=== PATIENT | female | born 1935 | race Caucasian/White ===

== ENCOUNTER 2020-10-07 09:20 | Outpatient (CLI) | payer MEDICARE, SELFPAY ==
--- NOTE | 2020-10-12 12:53 | WPDHOMESLEEP ---
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 She does not awaken from sleep feeling short of breath. She rarely awakens at night with heartburn, belching or coughing. She does not know if she snores. She rarely has trouble sleep with a cold rarely wakes up gasping for breath at night. She does not have breathing problems at night observed by others or sweating at night. She occasionally notices her heart pounding or beating irregularly we at night. She does not fall asleep during the day, does not fall asleep involuntarily or while driving. She rarely has loss of muscle tone was strong emotion. She does not have daytime difficulties due to excessive sleepiness. She does not feel paralyzed on waking or falling asleep. She does not have vivid dreamlike scenes upon awakening or falling asleep. She is not afraid to go to sleep. She rarely has nightmares. She really remembers her dreams. She rarely has racing thoughts. She occasionally has feelings of sadness, depression or anxiety. She occasionally has muscular tension. She does not notice parts of her body jerking and she does not kick at night. She rarely has crawling and aching feelings in her legs and rarely has any kind of leg pain at night. She does not have morning jaw pain. She does not know if she grinds her teeth at night. She rarely is bothered by pain during the day and rarely is awake by pain at night. She occasionally wakes up feeling stiff in the morning, rarely with sore or achy muscles and rarely with pain in the neck and spine. She has memory problems, depression, poor appetite and she takes antacids regularly. She has difficulty as she wakes up multiple times at night and it has difficulty returning to sleep. Normal bedtime is between 8 and 8:30 p.m., and she is not sure how long it takes her to fall asleep. She typically wakes at night 1-2 times. While awake she will stay in bed trying to rest and try to return to sleep. She estimates that these episodes of wake will last anywhere between 30 minutes to 2 hours. She wakes the morning at 5:00 a.m.. She estimates getting 7 8 hours of sleep at night. Her weekend schedule is the same. [facility] Past Medical History Medical History Hyperlipidemia Hypertension Lung malignancy Type 2 diabetes mellitus Surgical History Surgical History History of mitral valve repair Family History Family History Sibling Diabetes mellitus Family history of malignant neoplasm Father Family history of cardiovascular disease Social History Social History Smoking status: Never smoker Second hand tobacco smoke exposure: No Alcohol intake: former Substance use: never Substance use type: does not use Additional gender identity comments: Hospital Volunteer. Medications Home Medications Medication Instructions Recorded Confirmed Type metoprolol tartrate 25 mg tablet 12.5 mg PO DAILY #45 tablet 09/02/19 08/24/20 Rx erlotinib 150 mg tablet 100 mg PO DAILY tablet 04/12/20 08/24/20 History vitamins B1 B6 B12 tablet tablet PO DAILY tablet 04/12/20 08/24/20 History metformin 500 mg tablet,extended 1,000 mg PO BID #360 tablet 05/03/20 08/24/20 Rx release 24 hr ibandronate 150 mg tablet 150 mg PO CLAUDIA
== END 2020-10-07 09:21 | disposition home or self-care (01) ==
LOC: ANHCSM 09:20
PROVIDERS: PCP Physician Assistant; Visit Provider Physician Assistant
DX: G47.19 Other hypersomnia (principal)
CPT/HCPCS: 99199

== ENCOUNTER 2021-04-06 15:36 | Outpatient (CLI) | payer MEDICARE, SELFPAY ==
--- NOTE | ~2021-04-06 | XR_ITS ---
XR hip BI wo pelvis DATE: 04/06/2021 16:28 INDICATION: Fall on 03/23/2021. Bilateral hip pain, greater on the right TECHNIQUE: AP, lateral and crosstable lateral views of each hip COMPARISON: 03/27/2019 CT chest abdomen pelvis FINDINGS: Diffuse osteopenia. There is an old healed fracture of the right inferior pubic ramus. The pubic symphysis and sacroiliac joints are intact. No fracture, dislocation, avascular necrosis or bone destruction of either hip is detected. Bilateral hip osteoarthritis and chondrocalcinosis. IMPRESSION: Old healed right inferior pubic ramus fracture No fracture or dislocation Osteopenia Bilateral hip osteoarthritis and chondrocalcinosis Reviewed, dictated and finalized at location A.
--- NOTE | ~2021-04-06 | XR_ITS ---
XR lumbar spine min 4V DATE: 04/06/2021 16:28 INDICATION: Fall on 03/23. Right low back pain. TECHNIQUE: AP, lateral, bilateral oblique and coned lateral lumbosacral views COMPARISON: 01/13/2013 lumbar spine FINDINGS: There is diffuse osteopenia. There is levoscoliosis of the lower thoracic and lumbar spine. There is moderately severe anterior wedge compression fracture deformity of T11, mildly increased in severity since 01/13/2013. There is interval severe burst fracture deformity of L1 since December 2012, with greater than 75% loss o f height anteriorly. There is grade 1 anterolisthesis at L4-5 due to degenerative change at the apophyseal joints. No spon dylolysis is evident. There is severe degenerative disc disease at L5-S1. There is mild to moderate degenerative disc disea se at the remaining lumbar interspaces. The sacroiliac joints are intact. Prosthetic mitral valve and sternal wire sutures. Calcified uterine fibroids. IMPRESSION: Mildly increased compression fracture deformity of T11 since December 2012 Diffuse severe burst fracture deformity of L1 since December 2012 Grade 1 anterolisthesis at L4-5 due to degenerative change at the apophyseal joints Severe degenerative disc disease at L5-S1, mild to moderate degenerative disc disease at the remainin g lumbar levels Reviewed, dictated and finalized at location A. IMPRESSION: Mildly increased compression fracture deformity of T11 since December 21 013 Diffuse severe burst fracture deformity of L1 since December 2012 Grade 1 anterolisthesis at L4-5 due to degenerative change at the apophyseal urchi ints Severe degenerative disc disease at L5-S1, mild to moderate degenerative disc d isease at the remaining lumbar levels
== END 2021-04-06 15:37 | disposition home or self-care (01) ==
LOC: ANHIMG 15:38
PROVIDERS: PCP Family Medicine; Visit Provider Physician Assistant
DX: M16.0 Bilateral primary osteoarthritis of hip (principal); M85.88 Other specified disorders of bone density and structure, other site; M51.37 Other intervertebral disc degeneration, lumbosacral region
CPT/HCPCS: 72110; 73521

== ENCOUNTER 2021-12-26 13:56 | Outpatient (CLI) | payer MEDICARE, SELFPAY ==
--- NOTE | ~2021-12-26 | US_ITS ---
EXAMINATION: US carotid duplex BI DATE: 12/26/2021 14:35 INDICATION: Left carotid bruit TECHNIQUE: Grayscale, color Doppler, and pulsed Doppler images of the cervical carotid arteries were obtained. The degree of vessel stenosis is placed in one of the following categories: normal, <50%, 5 0-69%, >=70% but less than near-occlusion, near-occlusion, or total occlusion. Note that percent sten osis relative to normal distal artery lumen diameter is indirectly measured from velocity measurement s as described by Adiel, et al. Radiology 2003; [id number]. Notes: Normal: Peak systolic velocity <125 centimeters/sec and no plaque <50%. Peak systolic velocity <125 ( EDV <40; ICA/CCA PSV ratio <2.0; used these factors only a tandem lesions or low cardiac output or co ntralateral disease) 50-69 %: PSV 125-230 (EDV 40-100; ratio 2-4) >= 70% but less than near occlusion: PSV greater than 230 (EDV > 100; ratio> 4.0) Near Occlusion: PSV that is variable; markedly narrowed lumen Occlusion: Absent flow on color/spectral Doppler and no lumen on norton scale. COMPARISON: None. FINDINGS: RIGHT: The right common carotid artery (CCA) peak systolic velocity (PSV) is 62 cm/s. The right internal car otid artery (ICA) PSV is 45 cm/s. The right ICA end-diastolic velocity (EDV) is 13 cm/s. The right IC A/CCA PSV ratio is 0.7. The external carotid artery (ECA) PSV is 74 cm/s. There is antegrade flow in the right vertebral artery. LEFT: The left CCA PSV is 72 cm/s. The left ICA PSV is 54 cm/s. The left ICA EDV is 11 cm/s. The left ICA/C CA PSV ratio is 0.8. The ECA PSV is 56 sign or cm/s. There is antegrade flow in the left vertebral a rtery. IMPRESSION: 1. Less than 50% stenosis in the right internal carotid artery by sonographic criteria. 2. Less than 50% stenosis in the left internal carotid artery by sonographic criteria. Reviewed, dictated and finalized at location B. IMPRESSION: 1. Less than 50% stenosis in the right internal carotid artery by sonographic c riteria. 2. Less than 50% stenosis in the left internal carotid artery by sonographic cr iteria.
== END 2021-12-26 13:57 | disposition home or self-care (01) ==
PROVIDERS: PCP Family Medicine; Visit Provider Internal Medicine Cardiovascular Disease
DX: I65.23 Occlusion and stenosis of bilateral carotid arteries (principal)
CPT/HCPCS: 93880